=== PATIENT | female | born 1980 | race Two or more races ===

== ENCOUNTER 2021-05-31 21:07 | Emergency (ER) | payer BC ==
[~2021-05-31] VITALS: Ht 162.6 cm; Wt 90.9 kg
[2021-05-31 21:08] VITALS: BP 127/70
[2021-05-31 21:26] LABS: COVID AG,FIA SOURCE NASOPHARYNGEAL
== END 2021-05-31 22:04 | disposition home or self-care (01) ==
LOC: EMS 21:09
DX: Z20.822 Contact with and (suspected) exposure to COVID-19 (principal); I10 Essential (primary) hypertension
CPT/HCPCS: 99283